=== PATIENT | female | born 1985 | race Caucasian/White ===

== ENCOUNTER 2024-02-14 23:34 | Emergency (ER) | payer OTHER, SELFPAY ==
[2024-02-14 23:36] VITALS: BP 120/70
[2024-02-15 01:33] VITALS: BP 105/59
--- NOTE | 2024-02-15 01:58 | ED.GENMED ---
History of Present Illness
General
Chief Complaint: Throat Problem
Source: patient
Exam Limitations: none
Time Seen by Provider: 02/15/24 01:27
Nursing documentation reviewed up to this point in time: agreed with
History of Present Illness
History of Present Illness:
This is a 38-year-old woman who has history of Hermelinda's thyroiditis. She states her thyroid antibodies are chronically elevated but thus far she has not required medication. She has a follow-up appointment with her marble machine operator scheduled for
March 01. She admits that she has not had thyroid testing nor follow-up for at least a year.
1 week ago she began with generalized aches, mild sore throat, mild cough. Her daughter tested positive for influenza A about 1 week prior to her symptoms and she assumed that she had the flu. Patient states she was briefly feeling improved over
the weekend, 3 to 4 days ago but then symptoms worsened yesterday with generalized aches, left anterior lateral neck pain, a sense of skin/body burning. Left anterolateral neck pain is worse with swallowing but she is able to swallow, she denies
sore throat, no nasal congestion, no headache. She denies abdominal pain, no nausea or vomiting, no diarrhea in fact has been constipated over the past several days. She admits that her stools have been hard and tonight when she pushed hard to
pass a hard stool, this had scant streaks of blood around it.
She was evaluated urgent care yesterday, February 13 and states COVID and influenza testing were negative. The urgent care physician was concerned for thyroiditis and prescribed naproxen for pain.
She denies risk of stating last menstrual period was 3-1/2 weeks ago. Her menses is due by the end of this week.
She takes no medicines on a daily basis.
Past History
Past History
ED Past Medical History: Psychiatric (Anxiety) and Other (Endometriosis, ovarian cysts, Hermelinda's thyroiditis, genital herpes); Negative Asthma, HTN, Hypercholesterolemia or NIDDM
ED Past Surgical History: Appendectomy and Gynecological (Laproscopy)
Social History
Tobacco: Non-smoker
Alcohol: None
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
Personal: Single
Living: with family
Employment: Employed
Family History
Family History: Other (Noncontributory)
Phy Exam
Physical Exam
Physical Exam:
GENERAL: Alert , in no apparent distress. 38-year-old woman appears her stated age, awake and alert, pleasant, appears in no acute distress. Easily conversant. Afebrile. Vital signs within normal limits.
EYE: pupils equal and reactive. anicteric
NECK: Supple, mild tenderness left lower anterior lateral cervical region. Questionable minimal left thyroidomegaly. No adenopathy. No soft tissue swelling. no meningismus
ENT: posterior pharynx is clear without injection nor edema nor exudate, oral mucosa is moist. TM clear b/l, nares patent.
CARDIAC: Regular rate and rhythm. no murmur.
LUNGS: Clear breath sounds bilaterally, no acute respiratory distress, no wheezes/rales/rhonchi
ABDOMEN: Soft, nondistended, without focal tenderness, no r/g, no cvat. normoactive BS.
NEUROLOGICAL: Alert and oriented x3, no focal neuro deficits. Gait is barraza and steady.
SKIN: Warm and dry, normal color, skin intact. No rash.
MUSCULOSKELETAL: No C/C/E. peripheral pulses are full and equal b/l. No palpable tenderness.
PSYCH: Normal and appropriate interaction.
Course
Orders/Labs/Results
Orders:
Orders
02/15/24 01:47
Test Result ONCE
02/15/24 02:05
CRP [C-Reactive Protein] Urgent
Complete Blood Count/With Diff Urgent
Comprehensive Metabolic Panel Urgent
HCG, Serum Qualitative Screen Urgent
Sed Rate [Erythrocyte Sed Rate] Urgent
TSH Reflex To Free T4 Urgent
Abnormal Lab Results
02/15/24
02:05
RBC 4.18 L 10^6/uL
(4.20-5.40)
Hct 35.7 L %
(37.0-47.0)
MPV 10.7 H fL
(7.4-10.4)
BUN 21 H mg/dl
(7-17)
02/15/24 02:05
02/15/24 02:05
Vital Signs
Initial and Last Documented VS:
Initial Vital Signs
Temp Pulse Resp BP Pulse Ox
97.7 F 94 20 120/70 97
02/14/24 23:36 02/14/24 23:36 02/14/24 23:36 02/14/24 23:36 02/14/24 23:36
Last Documented Vital Signs
Temp Pulse Resp BP Pulse Ox
97.7 F 71 15 106/59 99
02/14/24 23:36 02/15/24 03:30 02/15/24 03:30 02/15/24 03:00 02/15/24 03:30
MDM/Problems Addressed
Differential Diagnosis Includes:
Concern for viral syndrome, exacerbation of Hermelinda's thyroiditis, cervical strain.
Will check labs including TSH with reflex to free T4. Will check inflammatory markers.
Chronic conditions affecting care: Other (Thyroid disease)
*Pulse Oximetry
Patient hypoxic: no
*Critical Care Note
Total Time (30-74mins, 75-104mins- exclusive of procedures): Not Applicable
Update Note
Update Note:
03:50
Labs are all unremarkable, normal white blood cell count, unremarkable chemistries. TSH is normal. Inflammatory markers are normal.
Patient continues to appear well.
She remains afebrile.
There is no evidence of rash and she denies any new household products. She may be suffering mild viral syndrome, mild dermatitis/dry skin. Recommend moisturizer. Recommend taking naproxen that was prescribed by urgent care.
Recommend she follow-up with her marble machine operator on March 01 as already scheduled and follow-up with PCP for recheck.
ED Attending Note
-
Portions of this chart may have been created with voice recognition software.� Occasional wrong word or��sound alike� substitutions may have occurred due to the inherent limitations of voice recognition software.
Discharge Plan
Departure
Patient Disposition: Home (Routine Discharge)
Date of Disposition: 02/15/24
Time of Disposition: 03:50
Patient with high blood pressure during this ER visit?: No
Condition: Good
Discharge Problem:
Myalgias
Instructions: Muscle, joint, and bone pain - Discharge instructions
Prescriptions:
No Action
doxycycline hyclate 100 MG capsule
100 mg PO Q12
clindamycin HCl 300 MG capsule
300 mg PO Q6HPRN PRN (Reason: pain ) Qty: 40 0RF
hydrocodone-acetaminophen 1 TABLET tablet
1 tab PO R QIDPRN PRN (Reason: pain ) Qty: 10 0RF
Rx Instructions:
one table every 6 hrs as needed
clindamycin HCl 150 MG capsule
3 mg PO TID Qty: 63 0RF
cephalexin 500 mg capsule
1,000 mg PO BID 7 Days Qty: 28 0RF
Referrals:
UNKNOWN - PT NOT,INTERVIEWE [Family Provider] -
Activity Restrictions/Additional Instructions:
You can take naproxen prescribed by urgent care for pain, discomfort.
Follow-up with marble machine operator as already scheduled.
Follow-up with your primary care physician this week or next week for recheck.
Interventions
Interventions:
*Risk Screen - Suicide Last Done: 02/14/24 23:35
*General Assessment Last Done: 02/15/24 02:19
*Neglect/Abuse Screening Last Done: 02/14/24 23:35
*ED COVID-19 Vaccine History Last Done: 02/15/24 02:19
ED-EENT Assessment Last Done: 02/15/24 02:19
ED- Pulmonary Assessment Last Done: 02/15/24 02:19
Discharge Date and Time
Print Language: BULGARIAN
[2024-02-15 02:00] VITALS: BP 101/59
[2024-02-15 02:26] LABS: % Basophils 0.5 % (0-2); % Eosinophils 0.8 % (0-6); % Immature Granulocytes 0.1 % (0-0.5); % Lymphocytes 25.7 % (20.5-51.1); % Monocytes 6.2 % (1.7-9.3); % Neutrophils 66.7 % (42.2-75.2); Absolute Eosinophils 0.1 10^3/uL (0-0.7); Absolute Lymphocytes 1.9 10^3/uL (1.2-3.4); Absolute Monocytes 0.5 10^3/uL (0.1-0.6); Absolute Neutrophils 4.9 10^3/uL (1.4-6.5); Hematocrit 35.7 % (37.0-47.0); Hemoglobin 12.1 g/dL (12.0-16.0); Mean Corp Hgb Conc. 33.9 g/dL (33.0-37.0); Mean Corpuscular Hgb 28.9 pg (27.0-31.0); Mean Corpuscular Volume 85.4 fL (81.0-99.0); Mean Platelet Volume 10.7 fL (7.4-10.4); Nucleated Red Blood Cells % 0 %; Platelet Count 160 10^3/uL (130-400); Red Blood Cell Count 4.18 10^6/uL (4.20-5.40); Red Cell Dist. Width 12.2 % (11.5-14.5); White Blood Cell Count 7.4 10^3/uL (4.8-10.8)
[2024-02-15 02:39] LABS: ALT (SGPT) 25 U/L (0-35); AST (SGOT) 21 U/L (14-36); Alkaline Phosphatase 92 U/L (38-126); Blood Urea Nitrogen 21 mg/dl (7-17); Calcium 8.7 mg/dl (8.4-10.2); Carbon Dioxide 24 mmol/L (22-30); Chloride 106 mmol/L (98-107); Glucose 95 mg/dl (70-99); Potassium 3.9 mmol/L (3.5-5.1); Sodium 137 mmol/L (135-145); Total Bilirubin 0.3 mg/dl (0.2-1.3); Total Protein 6.3 g/dl (6.3-8.2); eGFR > 60.00
[2024-02-15 02:41] LABS: HCG, Serum Qualitative Screen Negative
[2024-02-15 02:52] LABS: C-Reactive Protein < 5.00 mg/L (0.0-10.00)
[2024-02-15 02:58] LABS: Erythrocyte Sed Rate 2 mm/hour (0-20)
[2024-02-15 03:00] VITALS: BP 106/59
[2024-02-15 03:23] LABS: TSH Reflex To Free T4 4.55 uIU/ml (0.47-4.68)
== END 2024-02-15 03:59 | disposition home or self-care (01) ==
LOC: EMR 23:34
PROVIDERS: EMERGENCY PHYSICIAN Emergency Medicine
DX: M79.10 Myalgia, unspecified site (principal); M54.2 Cervicalgia; E06.3 Autoimmune thyroiditis
CPT/HCPCS: 99283; 80053; 84443; 84703; 85025; 85652; 86140

== ENCOUNTER 2024-02-17 08:47 | Emergency (ER) | payer OTHER, SELFPAY ==
[2024-02-17 09:03] VITALS: BP 110/75
--- NOTE | 2024-02-17 12:32 | ED.GENMED ---
History of Present Illness
General
Chief Complaint: Headache
Source: patient
Exam Limitations: none
Time Seen by Provider: 02/17/24 12:14
Nursing documentation reviewed up to this point in time: agreed with
History of Present Illness
History of Present Illness:
38 yo female with scattered intermittent tingling, jabbing pains over different parts of her body. Hands feel weak at times, dropped her phone from right hand once last week, her left hand fell from the steering wheel once last week while driving.
Feels numbness right cheek at times. Tongue tingles at times.
Feels worse with burning sensations in body, 'shocks and jolts' through her body. Feels 'worse than I did Tuesday [3 days ago] when I was here.'
Her vision has been 'off' for 2 weeks but 2 weeks ago she got new contacts and she feels the prescription isn't right.
She is afraid of brain tumor, MS, cancer or some autoimmune problem
She was recently presumptively diagnosed with Hermelinda's thyroiditis and has appt. with Endocrinology on Mar 01.
Past History
Past History
ED Past Medical History: Psychiatric (Anxiety) and Other (Endometriosis, ovarian cysts, Hermelinda's thyroiditis, genital herpes); Negative Asthma, HTN, Hypercholesterolemia or NIDDM
ED Past Surgical History: Appendectomy and Gynecological (Laproscopy)
Social History
Tobacco: Non-smoker
Alcohol: None
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
Personal: Single
Living: with family
Employment: Employed
Family History
Family History: Other (Noncontributory)
Review of Systems
Review of Systems
Allergies reviewed?: Yes
All Other Systems: ROS reviewed and negative except as documented in HPI and ROS
Constitutional: Denies fever or fatigue
Respiratory: Denies trouble breathing
Cardiac: Denies chest pain
ABD/GI: Denies abdominal pain, nausea, vomiting or diarrhea
: Denies dysuria or difficulty voiding
Musculoskeletal: Reports no symptoms
Skin: Reports no symptoms
Neurological: Reports headache and other (tingling, 'shocking jolts' throughout body. Weakness in hands at times. )
Psychiatric: Reports anxiety
Phy Exam
Physical Exam
Physical Exam:
GENERAL: No acute distress. A&Ox3.
CONSTITUTIONAL: Afebrile.
EYES: clear, conjunctivae normal, good red reflex bilaterally, sharp vessel edges
ENMT: moist mucus membranes, Pharynx nl
RESPIRATORY: Regular respirations, nonlabored, lungs clear.
CARDIOVASCULAR: Regular rate and rhythm, no murmurs, no rubs.
GI: Soft, nontender, normal BS
MUSCULOSKELETAL: Moves with ease. Well perfused.
SKIN: Warm, dry, pink
PSYCH: Normal mood and affect. Well kept, interactive and appropriate
NEUROLOGIC: Awake, alert and oriented. Cranial nerves II through XII intact. [id number] intact. Ambulates well with steady gait. No focal neurological deficits
Course
Orders/Labs/Results
Orders:
Orders
02/17/24 12:26
CT Head W/o Iv Contrast Urgent
Comment:
Reason For Exam: peristent headache, R cheek numbness, tingling bod
02/17/24 13:20
COVID-19 Antigen Urgent
Source: Nasal Swab
Lyme Progressive Urgent
Influenza A+B Rapid Molecular Urgent
DOROTHY Source: Nasal Swab
Specimen Description:
Vital Signs
Initial and Last Documented VS:
Initial Vital Signs
Temp Pulse Resp BP Pulse Ox
98.0 F 92 16 110/75 100
02/17/24 09:03 02/17/24 09:03 02/17/24 09:03 02/17/24 09:03 02/17/24 09:03
Last Documented Vital Signs
Temp Pulse Resp BP Pulse Ox
98.0 F 92 16 110/75 100
02/17/24 09:03 02/17/24 09:03 02/17/24 09:03 02/17/24 09:03 02/17/24 09:03
MDM/Problems Addressed
Differential Diagnosis Includes:
Autoimmune disorder, MS, Lyme's, viral illness, anxiety
MDM/Problems Addressed:
38 yo female with scattered intermittent tingling, jabbing pains over different parts of her body. Hands feel weak at times, dropped her phone from right hand once last week, her left hand fell from the steering wheel once last week while driving.
Feels numbness right cheek at times. Tongue tingles at times.
Feels worse with burning sensations in body, 'shocks and jolts' through her body. Feels 'worse than I did Tuesday [3 days ago] when I was here.'
Her vision has been 'off' for 2 weeks but 2 weeks ago she got new contacts and she feels the prescription isn't right.
She states concern for brain tumor, MS, cancer or some autoimmune problem
States she was tested for Flu (daughter recently had it) and Covid at 'but they were the rapid tests'
She was recently presumptively diagnosed with Hermelinda's thyroiditis and has appt. with Endocrinology on Mar 01.
She has remote history of alcoholism, has been sober for 5 years. She has hx of panic attacks which have much improved. She was on antianxiety/depression med back then but none since.
She denies any recent trauma or undue stress although she feels 'I'm going crazy' with all of her symptoms.
Covid neg
Flu neg
Lyme titer pending.
Symptoms are new, there is no dissemination in time. Normal neuro exam. No hx significant fatigue. Change in vision can be explained by new contact lenses as it occurred at same time as lenses renewed. All reassuring aginst MS
Pt stable for discharge
Recommend F/U with PCP and/or Neurology to discuss if they recommend MRI.
Keep appointment with Endocrinology as scheduled.
Pt informs me she has appt in late Feb with her new PCP.
She will discuss going back on Zoloft
Rx for Ativan 0.5 mg prn x 7 tables sent to her pharmacy
*Critical Care Note
Total Time (30-74mins, 75-104mins- exclusive of procedures): Not Applicable
ED Attending Note
-
Portions of this chart may have been created with voice recognition software.� Occasional wrong word or��sound alike� substitutions may have occurred due to the inherent limitations of voice recognition software.
Discharge Plan
Departure
Patient Disposition: Home (Routine Discharge)
Date of Disposition: 02/17/24
Time of Disposition: 14:14
Patient with high blood pressure during this ER visit?: No
Condition: Good
Discharge Problem:
Tingling in extremities, Facial tingling sensation, Anxiety about health
Instructions: Multiple sclerosis in adults, Headache, Adult (DC)
Prescriptions:
New
lorazepam [Ativan] 0.5 mg tablet
0.5 mg PO DAILY PRN (Reason: anxiety) Qty: 7 0RF
No Action
doxycycline hyclate 100 MG capsule
100 mg PO Q12
clindamycin HCl 300 MG capsule
300 mg PO Q6HPRN PRN (Reason: pain ) Qty: 40 0RF
hydrocodone-acetaminophen 1 TABLET tablet
1 tab PO R QIDPRN PRN (Reason: pain ) Qty: 10 0RF
Rx Instructions:
one table every 6 hrs as needed
clindamycin HCl 150 MG capsule
3 mg PO TID Qty: 63 0RF
cephalexin 500 mg capsule
1,000 mg PO BID 7 Days Qty: 28 0RF
Referrals:
Your, [employer] Representative [Other] - Keep scheduled appt
Henry Edwards MD [Active] - Next open appointment
UNKNOWN - PT DOES,NOT KNOW [Family Provider] -
Activity Restrictions/Additional Instructions:
As we discussed nothing worrisome in your workup here today.
Your Lyme test is pending and will be resulted in 3-4 days (they send them out)
There is no indication at this time that you have MS.
However, I have provided you with information on MS FYI.
I have provided you with the name of a Neurologist if needed.
Please discuss your symptoms with your primary doctor or the neurologist and ask if you need further testing.
Interventions
Interventions:
*Risk Screen - Suicide Last Done: 02/17/24 11:51
*General Assessment Last Done: 02/17/24 11:49
*Neglect/Abuse Screening Last Done: 02/17/24 11:51
*ED COVID-19 Vaccine History Last Done: 02/17/24 11:49
*Nursing Disposition Last Done: 02/17/24 14:52
ED- Neurological Assessment Last Done: 02/17/24 11:51
ED- Pulmonary Assessment Last Done: 02/17/24 11:51
Discharge Date and Time
Discharge Date/Time: 02/17/24 14:53
Print Language: OCCITAN
[2024-02-17 13:49] LABS: COVID-19 Antigen Negative (Negative)
[2024-02-23 11:49] LABS: Lyme Antibody Screen, EIA Negative (Negative)
== END 2024-02-17 14:53 | disposition home or self-care (01) ==
LOC: EMR 08:47
PROVIDERS: Registered Nurse; EMERGENCY PHYSICIAN Emergency Medicine
DX: R20.2 Paresthesia of skin (principal); F41.9 Anxiety disorder, unspecified; Z11.52 Encounter for screening for COVID-19
CPT/HCPCS: 99284; 70450; 86618; 87502; 87811